=== PATIENT | female | born 1990 | race Hispanic/Latino ===

== ENCOUNTER 2021-05-17 12:39 | Emergency (ER) | payer OTHER ==
[~2021-05-17] VITALS: Ht 160 cm; Wt 72.6 kg
[2021-05-17 12:42] VITALS: BP 117/78
== END 2021-05-17 17:26 | disposition left against medical advice (07) ==
LOC: EDH 12:39
DX: M54.9 Dorsalgia, unspecified (principal); Z53.21 Procedure and treatment not carried out due to patient leaving prior to being seen by health care provider